=== PATIENT | female | born 1985 | race Caucasian/White ===

== ENCOUNTER 2018-07-29 11:20 | Inpatient (IN) | payer MEDICAID ==
[~2018-07-29] VITALS: Ht 167.6 cm; Wt 127.0 kg
[~2018-07-29 11:20] MED LIST: LEV50T PO; PREN-153 OR
[2018-07-29 14:57] LABS: Basophils # (auto) 0 uL; Basophils % (auto) 0.2 % (0.0-2.0); Eosinophils # (auto) 0 uL; Eosinophils % (auto) 0.2 % (0.0-7.0); Hematocrit 40.1 % (36.0-46.0); Hemoglobin 13.1 g/dL (12.2-16.2); Lymphocytes # (auto) 1.5 uL; Lymphocytes % (auto) 9.5 % (10.0-50.0); Mean Corpuscular Hemoglobin 27.2 pg (28.0-32.0); Mean Corpuscular Hgb Conc. 32.7 g/dL (32.0-36.0); Mean Corpuscular Volume 83.3 fL (80.0-100.0); Monocytes % (auto) 6.2 % (0.0-12.0); Neutrophils % (auto) 83.9 % (37.0-80.0); Platelet Count (auto) 124 10^3/uL (140-450); Red Blood Cells 4.82 10^6/uL (4.0-5.20); Red Cell Distribution Width 16.5 % (11.8-14.3); White Blood Cell 15.5 10^3/uL (4.4-10.8)
[2018-07-29 15:18] LABS: INR 0.86 (0.9-1.15); Partial Thromboplastin Time 26.1 sec (23.64-32.05)
[2018-07-29 15:21] LABS: Albumin 2.4 g/dL (3.4-5.0); Calcium 8.2 mg/dL (8.5-10.1); Potassium 4.5 mmol/L (3.5-5.1)
[2018-07-29 15:26] LABS: BUN/Creatinine Ratio 15.4; Bilirubin, Total 0.4 mg/dL (0.2-1.0); Total Protein 6.4 g/dL (6.4-8.2); Uric Acid 5.5 mg/dL (2.6-6.0)
[2018-07-29] MEDS ORDERED: MAGNESIUM SULFATE 40MG/ML 1,000 ML IV SCH (16:24)
[2018-07-29] MEDS ORDERED: LACT. RINGERS/OXYTOCIN 20UNITS 1,000 ML IV SCH (16:24)
[2018-07-29] MEDS ORDERED: PHISODERM TOP SOLN 240ML BTL TOP PRN (16:30)
[2018-07-29] MEDS ORDERED: NALBUPHINE HCL 10 MG/1ml INJECTION IV PRN (16:30)
[2018-07-29] MEDS ORDERED: LIDOCAINE 2%HCL (LOCAL ANESTH.) INJ 20ML MDV ID PRN (16:30)
[2018-07-29] MEDS ORDERED: DERMOPLAST 60ML BOTTLE TOP PRN (16:30)
[2018-07-29] MEDS ORDERED: MAGNESIUM SULFATE 100 ML IV ONE (16:30)
[2018-07-29] MEDS ORDERED: CARBOPROST TROMETHAMINE 250 MCG/1ML VIAL IM PRN (16:30)
[2018-07-29 16:36] LABS: Urine WBC None Seen /hpf (0 - 5)
[2018-07-29] MEDS: LACTATED RINGER'S 1,000 ML IV SCH (17:00)
[2018-07-29 17:10] LABS: Urine Bacteria FEW /hpf (None Seen); Urine Blood Negative /uL (Negative); Urine Mucus FEW (None Seen); Urine Specific Gravity 1.013 (1.001-1.035)
[2018-07-29] MEDS ORDERED: TETRACAINE 1% INJ 2 ML VIAL IJ ONE (20:05)
[2018-07-29] MEDS ORDERED: fentaNYL CITRATE 100 MCG/2 ML VL ONE (20:07)
[2018-07-29] MEDS ORDERED: MORPHINE SULF(PF) 0.5MG/ML 10ML VIAL ONE (20:07)
[2018-07-29] MEDS ORDERED: MIDAZOLAM HCL 1MG/1ML-2 ML VIAL ONE ×3 (20:07→20:42)
[2018-07-29] MEDS ORDERED: SODIUM CHLORIDE LOCK 20 ML ONE (20:08)
[2018-07-29] MEDS ORDERED: ePHEDrine SULFATE 50 MG/ML AMP ONE (20:08)
[2018-07-29] MEDS ORDERED: EPINEPHrine HCL 1 MG/1 ML AMP ONE (20:08)
[2018-07-29] MEDS ORDERED: OXYTOCIN 10 UNIT/ML 10ML VIAL ONE (20:08)
[2018-07-29] MEDS ORDERED: ONDANSETRON HCL 4 MG/2 ML VIAL ONE (20:08)
[2018-07-29] MEDS ORDERED: ceFAZolin 1GM VL ONE (20:08)
[2018-07-29] MEDS ORDERED: diphenhdrAMINE HCL 50 MG/1 ML VL IV PRN (21:45)
[2018-07-29] MEDS ORDERED: ONDANSETRON HCL 4 MG/2 ML VIAL IV PRN (21:45)
[2018-07-29] MEDS ORDERED: HYDROmorphone HCL 2 MG/ML VL IV PRN (21:45)
[2018-07-29] MEDS ORDERED: MORPHINE SULFATE 4 MG/ML SYR/VIAL IV PRN (21:45)
[2018-07-29] MEDS ORDERED: METOCLOPRAMIDE HCL 5MG/ml INJ 2ml VIAL IV ONE (21:45)
[2018-07-29] MEDS ORDERED: KETOROLAC TROMETH 30 MG/ML 1ML VIAL IV PRN (21:45)
[2018-07-29] MEDS ORDERED: KETOROLAC TROMETH 30 MG/ML 1ML VIAL IV ONE (21:45)
[2018-07-29] MEDS ORDERED: ceFAZolin 1GM/50ML 50 ML IV SCH (21:45)
[2018-07-29] MEDS ORDERED: NALOXONE HCL 0.4 MG/ML VIAL IV PRN (21:45)
[2018-07-29] MEDS: LACT. RINGERS/OXYTOCIN 20UNITS 1,000 ML IV SCH (22:00)
--- NOTE | 2018-07-29 22:25 | NUR ---
Post Op for LDRP: Received patient from PACU via bed to room 4. Patient A/A/Ox4, abdominal binder and bilateral SCD's are in place, IV fluids placed on pump and infusing per order, incisional site dressing clean/dry/intact and Velasquez Catheter to gravity draining clear yellow urine. Incentive Spirometer at bedside and instruction on proper use with return demonstration done by patient.
[2018-07-29 22:36] LABS: Basophils # (auto) 0 uL; Basophils % (auto) 0.2 % (0.0-2.0); Eosinophils # (auto) 0 uL; Eosinophils % (auto) 0.1 % (0.0-7.0); Hemoglobin 13.4 g/dL (12.2-16.2); Lymphocytes # (auto) 1.5 uL; Mean Corpuscular Hemoglobin 27.5 pg (28.0-32.0); Mean Corpuscular Hgb Conc. 32.6 g/dL (32.0-36.0); Mean Corpuscular Volume 84.3 fL (80.0-100.0); Monocytes # (auto) 1.3 uL; Monocytes % (auto) 7.3 % (0.0-12.0); Neutrophils # (auto) 15.4 uL; Neutrophils % (auto) 84.4 % (37.0-80.0); Platelet Count (auto) 80 10^3/uL (140-450); Red Blood Cells 4.86 10^6/uL (4.0-5.20); Red Cell Distribution Width 16.3 % (11.8-14.3); White Blood Cell 18.2 10^3/uL (4.4-10.8)
[2018-07-29 22:54] LABS: Calcium 7.7 mg/dL (8.5-10.1); Potassium 4.4 mmol/L (3.5-5.1)
[2018-07-29 23:01] LABS: Albumin 2.4 g/dL (3.4-5.0); BUN/Creatinine Ratio 11.7; Bilirubin, Total 1.1 mg/dL (0.2-1.0); Total Protein 6.3 g/dL (6.4-8.2)
--- NOTE | 2018-07-29 23:39 | NUR ---
Dr. Dumont calls unit for update on PT. lab results. CBC and CMP results given including Platelet, Hemoglobin, Hematocrit, AST and ALT results. Continue plan of care.
[2018-07-30] VITALS (30 sets, daily range): BP systolic 106–137; BP diastolic 55–84
[2018-07-30] MEDS: ceFAZolin 1GM/50ML 50 ML IV SCH ×3 (02:46→17:35)
[2018-07-30] MEDS: LACTATED RINGER'S 1,000 ML IV SCH ×3 (04:27→09:00)
[2018-07-30] MEDS: WITCH HAZEL-GLYCERIN PAD TOP PRN (05:07)
--- NOTE | 2018-07-30 06:30 | NUR ---
PT REPORT RECEIVED FROM Carli EDWARD RN ON STABLE PATIENT. PT IS ALERT AND ORIENTED X4, PT LYING SUPINE IN BED, PT IS ASYMPTOMATIC. PTS BED IS AND IN LOWEST POSITION, SIDE RAILS UP X2, CALL LIGHT WITHIN REACH. NO S/S OF DISTRESS OR SOB NOTED, BILATERAL LUNG SOUNDS CLEAR, PT DENIES ANY PAIN, ABDOMINAL BINDER IS ON, ABDOMINAL DRESSING REMOVED PER ORDER, FUNDUS FIRM, 1 BELOW UMBILICUS, SMALL RUBRA BLEEDING NOTED, ACTIVE BOWEL SOUNDS, NO FLATUS AT THIS TIME, IV INFUSING INFUSING MAGNESIUM 2GM/50ML/HR, AND PITOCIN 20 UNITS IN 1000ML LR BAG AT 100ML/HR PER DR. RICHARD ORDER. PTS DANIEL CATHETER IS PATENT AND DRAINING DARK ALEXIA URINE TO GRAVITY. PTS SCD'S ON AND COMPRESSING BILATERAL LOWER EXTREMITIES. WILL CONTINUE TO MONITOR.
[2018-07-30] MEDS: LACT. RINGERS/OXYTOCIN 20UNITS 1,000 ML IV SCH ×2 (06:38→20:58)
--- NOTE | 2018-07-30 07:00 | NUR ---
DR. RICHARD CALLED UNIT, STATUS UPDATE GIVEN. DR RICHARD NOTIFIED THAT LAB RESULTS ARE STILL PENDING, TRENDING VITAL SIGNS GIVEN, TRENDING URINE OUTPUTS GIVEN, PT DENIES ANY PAIN, FUNDUS FIRM, 1 BELOW UMBILICUS, SMALL RUBRA BLEEDING NOTED, INFUSING MAGNESIUM 2GM/50ML/HR, AND PITOCIN 20 UNITS IN 1000ML LR BAG AT 100ML/HR PER ORDER. ORDERS RECEIVED FROM DR. RICHARD TO STOP PITOCIN AND RESUME LR AT 75ML/HR, PT CAN GET UP TO CHAIR AT 0900, RESUME MAGNESIUM 2GM AT 50ML/HR AND RE-EVALUATE AT 2100 TONIGHT. READ BACK AND VERIFIED ORDERS. WILL CARRY OUT.
[2018-07-30 07:15] LABS: Eosinophils # (auto) 0 uL; Hematocrit 35.9 % (36.0-46.0); Hemoglobin 11.9 g/dL (12.2-16.2); Lymphocytes # (auto) 1.6 uL; Neutrophils % (auto) 80.5 % (37.0-80.0)
[2018-07-30 07:17] LABS: Basophils # (auto) 0 uL; Basophils % (auto) 0.2 % (0.0-2.0); Eosinophils % (auto) 0.1 % (0.0-7.0); Lymphocytes % (auto) 11.5 % (10.0-50.0); Mean Corpuscular Hemoglobin 27.6 pg (28.0-32.0); Mean Corpuscular Hgb Conc. 33.1 g/dL (32.0-36.0); Mean Corpuscular Volume 83.4 fL (80.0-100.0); Monocytes # (auto) 1.1 uL; Monocytes % (auto) 7.7 % (0.0-12.0); Platelet Count (auto) 62 10^3/uL (140-450); Red Blood Cells 4.31 10^6/uL (4.0-5.20); Red Cell Distribution Width 16.1 % (11.8-14.3); White Blood Cell 13.7 10^3/uL (4.4-10.8)
[2018-07-30 07:30] LABS: Potassium 4.3 mmol/L (3.5-5.1)
[2018-07-30 07:34] LABS: Albumin 2.1 g/dL (3.4-5.0); Calcium 7.3 mg/dL (8.5-10.1)
[2018-07-30 07:37] LABS: Bilirubin, Total 0.7 mg/dL (0.2-1.0); Total Protein 5.7 g/dL (6.4-8.2)
--- NOTE | 2018-07-30 08:02 | NUR ---
DR. RICHARD NOTIFIED OF ALL LAB RESULTS. DR. RICHARD NOTIFIED THAT PT HAS A GENERALIZED PARIETAL HEADACHE. PER PT ITS "A PULSING HEADACHE THAT STARTED ABOUT 5 MINUTES AGO." PT STATES A 3/10 PAIN LEVEL. PT HAS ACTIVE BOWEL SOUNDS, NO FLATUS YET. ORDERS RECEIVED FROM DR. RICHARD FOR CLEAR LIQUID DIET, CBC RE-DRAW AT 10AM TODAY, CBC, CMP RE-DRAW AT 0600 TOMORROW 07/31/18, TYLENOL 650MG PO Q4HRS PRN FOR HEADACHE, AND NORCO 5/325MG PO Q4HRS FOR PAIN. READ BACK AND VERIFIED ORDERS. WILL CARRY OUT.
[2018-07-30] MEDS: ACETAMINOPHEN 325 MG TAB PO PRN ×2 (08:57→20:26)
[2018-07-30] MEDS: HYDROcodone-ACET 5/325MG TAB PO PRN ×3 (10:03→22:30)
--- NOTE | 2018-07-30 12:35 | NUR ---
PT ASSISTED TO CHAIR AT BEDSIDE BY THIS RN. NO DISTRESS NOTED. WILL CONTINUE TO MONITOR.
--- NOTE | 2018-07-30 13:12 | NUR ---
[facility] TE[facility] IN NURSERY FOR TRANSPORT OF , STATUS UPDATE GIVEN.
--- NOTE | 2018-07-30 13:15 | NUR ---
DR. RICHARD NOTIFIED OF PTS MAGNESIUM LEVEL OF 6.2, PT IS ASYMPTOMATIC, NO S/SF MAGNESIUM TOXICITY, TRENDING VITAL SIGNS GIVEN, TRENDING URINE OUTPUT GIVEN, PT SITTING IN CHAIR AT BEDSIDE. ORDERS RECEIVED FROM DR. RICHARD TO STOP PTS IV MAGNESIUM FOR 2 HOURS, REPEAT MAGNESIUM LEVEL 2 HOURS AFTER MAGNESIUM IS STOPPED. READ BACK AND VERIFIED ORDERS. WILL CARRY OUT.
--- NOTE | 2018-07-30 13:20 | NUR ---
PTS IV MAGNESIUM STOPPED AT THIS TIME. WILL CONTINUE TO MONITOR.
--- NOTE | 2018-07-30 14:10 | NUR ---
PT BACK IN BED. PT LYING SEMIFOWLERS IN BED, SCD'S REMAIN ON AND COMPRESSING BILATERAL LOWER EXTREMITIES. PT DENIES ANY PAIN THIS TIME. NO DISTRESS NOTED. BED IN LOCKED AND IN LOWEST POSITION, CALL LIGHT WITHIN REACH. WILL CONTINUE TO MONITOR.
--- NOTE | 2018-07-30 17:10 | NUR ---
Dr Dumont called unit informed her of current Mag. level of 5.1 and BPs. Received order to discontinue Mag. infusion.
--- NOTE | 2018-07-30 18:30 | NUR ---
PT REPORT GIVEN TO Carli EDWARD RN ON STABLE PATIENT, RELINQUISHED CARE. NO DISTRESS NOTED.
[2018-07-30 19:00] LABS: Basophils # (auto) 0 uL; Basophils % (auto) 0.2 % (0.0-2.0); Eosinophils # (auto) 0 uL; Eosinophils % (auto) 0.2 % (0.0-7.0); Hematocrit 40.3 % (36.0-46.0); Hemoglobin 13.1 g/dL (12.2-16.2); Lymphocytes # (auto) 1.3 uL; Lymphocytes % (auto) 8.6 % (10.0-50.0); Mean Corpuscular Hemoglobin 27.1 pg (28.0-32.0); Mean Corpuscular Hgb Conc. 32.4 g/dL (32.0-36.0); Mean Corpuscular Volume 83.6 fL (80.0-100.0); Monocytes # (auto) 0.9 uL; Monocytes % (auto) 5.8 % (0.0-12.0); Neutrophils % (auto) 85.2 % (37.0-80.0); Platelet Count (auto) 71 10^3/uL (140-450); Red Blood Cells 4.82 10^6/uL (4.0-5.20); Red Cell Distribution Width 16.7 % (11.8-14.3); White Blood Cell 15.2 10^3/uL (4.4-10.8)
[2018-07-31] VITALS (7 sets, daily range): BP systolic 116–138; BP diastolic 61–77
[2018-07-31] MEDS: LACT. RINGERS/OXYTOCIN 20UNITS 1,000 ML IV SCH (04:00)
[2018-07-31] MEDS: HYDROcodone-ACET 5/325MG TAB PO PRN (04:09)
[2018-07-31] MEDS ORDERED: SIMETHICONE 80 MG CHEWABLE TABLET PO SCH (06:00)
[2018-07-31] MEDS ORDERED: IBUPROFEN 800 MG TAB PO PRN (06:00)
[2018-07-31 06:31] LABS: Basophils # (auto) 0 uL; Basophils % (auto) 0.2 % (0.0-2.0); Eosinophils # (auto) 0.1 uL; Eosinophils % (auto) 0.5 % (0.0-7.0); Hematocrit 36.1 % (36.0-46.0); Hemoglobin 11.9 g/dL (12.2-16.2); Lymphocytes # (auto) 1.4 uL; Lymphocytes % (auto) 10.1 % (10.0-50.0); Mean Corpuscular Hemoglobin 27.6 pg (28.0-32.0); Mean Corpuscular Hgb Conc. 33.1 g/dL (32.0-36.0); Mean Corpuscular Volume 83.5 fL (80.0-100.0); Monocytes % (auto) 7.2 % (0.0-12.0); Neutrophils # (auto) 11.4 uL; Platelet Count (auto) 71 10^3/uL (140-450); Red Blood Cells 4.32 10^6/uL (4.0-5.20); Red Cell Distribution Width 17.1 % (11.8-14.3); White Blood Cell 13.9 10^3/uL (4.4-10.8)
[2018-07-31 06:44] LABS: Potassium 4.2 mmol/L (3.5-5.1)
[2018-07-31 06:52] LABS: Albumin 2.1 g/dL (3.4-5.0); BUN/Creatinine Ratio 13.1; Bilirubin, Total 0.5 mg/dL (0.2-1.0); Calcium 7.4 mg/dL (8.5-10.1); Total Protein 6.2 g/dL (6.4-8.2)
[2018-07-31 07:06] LABS: RPR Non Reactive (Non Reactive)
[2018-07-31] MEDS ORDERED: BISACODYL 10 MG RECT SUPP PR PRN (10:15)
[2018-07-31] MEDS: SIMETHICONE 80 MG CHEWABLE TABLET PO SCH ×3 (11:36→22:27)
[2018-07-31] MEDS: HYDROcodone-ACET 10/325MG TAB PO PRN ×3 (12:51→22:26)
[2018-07-31] MEDS ORDERED: LEVOTHYROXINE SODIUM 25 MCG TAB PO ONE (14:15)
--- NOTE | 2018-07-31 18:52 | NUR ---
Post physical assessment complete. Incision without drainage, all maine intact, open to air. No S/S of infection noted at this time. patuient displays no S/S of distress.
--- NOTE | 2018-07-31 18:55 | NUR ---
Ambulation encouraged by RN patient refuses at this time, states she is "too tired, trying to rest."
[2018-07-31] MEDS: DOCUSATE SOD 100 MG CAP PO SCH (22:28)
[2018-08-01 03:03] VITALS: BP 128/69
[2018-08-01] MEDS: SIMETHICONE 80 MG CHEWABLE TABLET PO SCH ×4 (05:33→22:14)
[2018-08-01] MEDS: HYDROcodone-ACET 10/325MG TAB PO PRN ×4 (05:34→23:24)
[2018-08-01 06:35] LABS: Basophils # (auto) 0.1 uL; Basophils % (auto) 0.4 % (0.0-2.0); Eosinophils # (auto) 0.2 uL; Eosinophils % (auto) 1.7 % (0.0-7.0); Hematocrit 35.3 % (36.0-46.0); Hemoglobin 11.5 g/dL (12.2-16.2); Lymphocytes # (auto) 2.1 uL; Lymphocytes % (auto) 17.6 % (10.0-50.0); Mean Corpuscular Hemoglobin 27.3 pg (28.0-32.0); Mean Corpuscular Hgb Conc. 32.5 g/dL (32.0-36.0); Mean Corpuscular Volume 84.1 fL (80.0-100.0); Monocytes % (auto) 8.1 % (0.0-12.0); Neutrophils # (auto) 8.7 uL; Neutrophils % (auto) 72.2 % (37.0-80.0); Nucleated Red Blood Cells % 0.1 %; Platelet Count (auto) 96 10^3/uL (140-450); Red Cell Distribution Width 16.9 % (11.8-14.3)
[2018-08-01 07:00] VITALS: BP 127/63
[2018-08-01] MEDS: LEVOTHYROXINE SODIUM 25 MCG TAB PO SCH (07:00)
[2018-08-01 07:09] LABS: Albumin 2.1 g/dL (3.4-5.0)
[2018-08-01 07:13] LABS: BUN/Creatinine Ratio 13.8; Bilirubin, Total 0.3 mg/dL (0.2-1.0); Total Protein 6.1 g/dL (6.4-8.2)
--- NOTE | 2018-08-01 09:24 | NUR ---
ambulating in the hallway.
[2018-08-01] MEDS ORDERED: DOCUSATE CALCIUM 240 MG CAP PO SCH (10:00)
[2018-08-01] MEDS: DOCUSATE SOD 100 MG CAP PO SCH ×2 (10:24→22:14)
[2018-08-01 11:00] VITALS: BP 141/75
--- NOTE | 2018-08-01 13:00 | NUR ---
ambulating in the hallway for the second time.
--- NOTE | 2018-08-01 13:20 | NUR ---
report given to uriah shah rn patient in stable condition.
--- NOTE | 2018-08-01 15:00 | NUR ---
Pt ambulating in hallway with . Steady gait. Tolerated well.
[2018-08-01 15:08] VITALS: BP 139/70
[2018-08-01 18:39] VITALS: BP 141/85
--- NOTE | 2018-08-01 21:00 | NUR ---
Dr. Ramirez notified PT is reporting headache and recent blood pressure is 144/65 P 85. Received order PT may have Tylenol as needed for headache and to continue plan of care.
[2018-08-01 23:00] VITALS: BP 140/72
[2018-08-02 03:19] VITALS: BP 121/74
--- NOTE | 2018-08-02 03:20 | NUR ---
Discharge: Discharge instructions given. Pt encouraged to follow up with [facility] as apt made on 08-06-18 at -0800am. All questions and concerns addressed. Patient verbalized understanding. Medication reconciliation completed. PT declines TDAP. PT has no questions.
[2018-08-02 05:49] LABS: Basophils # (auto) 0.1 uL; Basophils % (auto) 0.5 % (0.0-2.0); Eosinophils # (auto) 0.3 uL; Eosinophils % (auto) 3.2 % (0.0-7.0); Hematocrit 35.5 % (36.0-46.0); Hemoglobin 11.9 g/dL (12.2-16.2); Lymphocytes % (auto) 22.1 % (10.0-50.0); Mean Corpuscular Hgb Conc. 33.4 g/dL (32.0-36.0); Mean Corpuscular Volume 83.9 fL (80.0-100.0); Monocytes # (auto) 0.7 uL; Monocytes % (auto) 7.5 % (0.0-12.0); Neutrophils # (auto) 6.2 uL; Neutrophils % (auto) 66.7 % (37.0-80.0); Platelet Count (auto) 122 10^3/uL (140-450); Red Blood Cells 4.23 10^6/uL (4.0-5.20); Red Cell Distribution Width 16.6 % (11.8-14.3); White Blood Cell 9.3 10^3/uL (4.4-10.8)
[2018-08-02] MEDS: HYDROcodone-ACET 10/325MG TAB PO PRN (05:59)
[2018-08-02] MEDS: SIMETHICONE 80 MG CHEWABLE TABLET PO SCH (05:59)
[2018-08-02 06:02] LABS: Albumin 2.2 g/dL (3.4-5.0); BUN/Creatinine Ratio 15.6; Bilirubin, Total 0.3 mg/dL (0.2-1.0); Calcium 8.3 mg/dL (8.5-10.1); Total Protein 6.2 g/dL (6.4-8.2)
[2018-08-02] MEDS: WITCH HAZEL-GLYCERIN PAD TOP PRN (06:03)
--- NOTE | 2018-08-02 06:45 | NUR ---
Pt resting in bed. Pain 0/10. Abdomin soft, tender with fundal massage. Incision-no redness, no edema, no ecchimosis, no drainage, edges well approximated. [address], open to air. Abdominal binder in place. Encouraged oral hydration, ambulation, elevation of lower extremities, updated on POC, and pain management. Board updated. Verbalized understanding.
[2018-08-02] MEDS: LEVOTHYROXINE SODIUM 25 MCG TAB PO SCH (06:55)
[2018-08-02 06:57] VITALS: BP 137/86
--- NOTE | 2018-08-02 09:30 | NUR ---
Discharge: Discharge instructions given as ordered. Pt encouraged to follow up with [facility] as instructed. All questions and concerns addressed. Patient verbalized understanding. Medication reconciliation completed and copy given to patient. All required/requested vaccines given and copies of vaccinations given to patient. Patient encouraged to prepare to depart unit.
--- NOTE | 2018-08-02 09:55 | NUR ---
Discharge: Patient taken to vehicle via wheelchair with all personal belongings, accompanied by staff and family member. No distress noted at time of departure, no adverse changes in status since initial assessment.
== END 2018-08-02 09:55 | disposition home or self-care (01) | DRG 540 ==
LOC: OBSVTOIN 11:20 → LDRP 11:20
PROVIDERS: ADMIT Obstetrics & Gynecology; ATTEND Obstetrics & Gynecology
PROC: 10D00Z1 Extraction of Products of Conception, Low, Open Approach (ICD-10-PCS; principal; 2018-07-29 20:28)
DX: O14.14 Severe pre-eclampsia complicating childbirth (principal); E03.9 Hypothyroidism, unspecified; O99.284 Endocrine, nutritional and metabolic diseases complicating childbirth; Z37.0 Single live birth; Z3A.38 38 weeks gestation of pregnancy
CPT/HCPCS: 36415; 51702; 59025; 76818; 80053; 81001; 81002; 83735; 84550; 85025; 85610; 85730; 86592; 86850; 86900; 86901; 94762; 96361; 96365; 96366; G0378; J0171; J0690; J1885; J2250; J2405; J2590

== ENCOUNTER 2019-04-13 17:38 | Emergency (ER) | payer MEDICAID ==
[~2019-04-13] VITALS: Ht 165.1 cm; Wt 120.2 kg
[2019-04-13 17:45] VITALS: BP 133/84
[2019-04-13 19:36] LABS: Basophils # (auto) 0.1 uL; Eosinophils # (auto) 0.2 uL; Neutrophils # (auto) 7.8 uL; Nucleated Red Blood Cells % 0.1 %
[2019-04-13 19:38] LABS: Eosinophils % (auto) 1.7 % (0.0-7.0); Hematocrit 45.4 % (36.0-46.0); Hemoglobin 15.3 g/dL (12.2-16.2); Lymphocytes # (auto) 2.8 uL; Mean Corpuscular Hemoglobin 27.6 pg (28.0-32.0); Mean Corpuscular Hgb Conc. 33.7 g/dL (32.0-36.0); Monocytes # (auto) 0.7 uL; Monocytes % (auto) 6.1 % (0.0-12.0); Neutrophils % (auto) 67.2 % (37.0-80.0); Platelet Count (auto) 266 10^3/uL (140-450); Red Blood Cells 5.54 10^6/uL (4.0-5.20); Red Cell Distribution Width 13.6 % (11.8-14.3); White Blood Cell 11.6 10^3/uL (4.4-10.8)
[2019-04-13 19:52] LABS: INR 1.01 (0.9-1.15); Partial Thromboplastin Time 28.6 sec (23.64-32.05)
[2019-04-13 19:54] LABS: Albumin 3.9 g/dL (3.4-5.0); Anion Gap 5 (5-15); Blood Urea Nitrogen 13 mg/dL (7-18); Calcium 9.3 mg/dL (8.5-10.1); Carbon Dioxide 28 mmol/L (21-32); Chloride 105 mmol/L (98-107); Glucose 86 mg/dL (74-106); Potassium 4.2 mmol/L (3.5-5.1); Sodium 138 mmol/L (136-145)
[2019-04-13 19:59] LABS: Alanine Aminotransferase 34 U/L (13-56); Alkaline Phosphatase 125 U/L (45-117); Aspartate Aminotransferase 22 U/L (15-37); BUN/Creatinine Ratio 15.5; Bilirubin, Total 0.2 mg/dL (0.2-1.0); GFR African American 99 mL/min; GFR Non-African American 82 mL/min; Total Protein 8.8 g/dL (6.4-8.2)
== END 2019-04-13 23:35 | disposition home or self-care (01) ==
LOC: ER 17:39
DX: R07.89 Other chest pain (principal); J45.909 Unspecified asthma, uncomplicated; Z88.8 Allergy status to other drugs, medicaments and biological substances; Z90.49 Acquired absence of other specified parts of digestive tract
CPT/HCPCS: 36415; 71046; 80053; 84484; 85025; 85379; 85610; 85730; 93005

== ENCOUNTER 2021-04-12 23:19 | Observation (INO) | payer MEDICAID ==
[~2021-04-12 23:19] MED LIST changes: -PREN-153 OR; +PREN1TAB71 OR
[2021-04-13 00:50] LABS: Basophils # (auto) 0.1 10 ^3/uL (0-0.2); Eosinophils # (auto) 0.1 10 ^3/uL (0-0.8); Lymphocytes # (auto) 2.3 10 ^3/uL (0.4-5.4); Mean Corpuscular Hgb Conc. 32.7 g/dL (32.0-36.0); Nucleated Red Blood Cells % 0.1 %
[2021-04-13 00:52] LABS: Basophils % (auto) 0.4 % (0.0-2.0); Eosinophils % (auto) 0.5 % (0.0-7.0); Hematocrit 39.8 % (36.0-46.0); Lymphocytes % (auto) 16.4 % (10.0-50.0); Mean Corpuscular Hemoglobin 26.7 pg (28.0-32.0); Mean Corpuscular Volume 81.6 fL (80.0-100.0); Monocytes # (auto) 1.1 10 ^3/uL (0-1.3); Monocytes % (auto) 7.5 % (0.0-12.0); Neutrophils # (auto) 10.5 10 ^3/uL (1.6-8.6); Neutrophils % (auto) 75.2 % (37.0-80.0); Red Blood Cells 4.88 10^6/uL (4.0-5.20); Red Cell Distribution Width 16.4 % (11.8-14.3)
[2021-04-13 01:01] LABS: Albumin 2.3 g/dL (3.4-5.0); Calcium 8.9 mg/dL (8.5-10.1); Uric Acid 4.8 mg/dL (2.6-6.0)
[2021-04-13 01:02] LABS: Protein, Urine 19.7 mg/dL (0.0-11.9); Urine Bacteria MOD /hpf (None Seen); Urine Blood Negative /uL (Negative); Urine Specific Gravity 1.018 (1.001-1.035); Urine WBC 3 /hpf (0 - 5)
[2021-04-13 01:03] LABS: Amphetamine Screen, Urine NEGATIVE (NEGATIVE); Barbiturate Scree,Urine NEGATIVE (NEGATIVE); Benzodiazephine Screen, Urine NEGATIVE (NEGATIVE); Cannabinoid Screen, Urine NEGATIVE (NEGATIVE); Cocaine Screen, Urine NEGATIVE (NEGATIVE); Opiate Scree,Urine NEGATIVE (NEGATIVE); Phencyclidine Screen, Urine NEGATIVE (NEGATIVE)
[2021-04-13 01:14] LABS: Bilirubin, Total 0.2 mg/dL (0.2-1.0); Potassium 3.9 mmol/L (3.5-5.1); Total Protein 6.6 g/dL (6.4-8.2)
[2021-04-13 01:25] LABS: INR 0.9 (0.9-1.15); Partial Thromboplastin Time 25.8 sec (23.6-33.0)
== END 2021-04-13 01:55 | disposition home or self-care (01) ==
LOC: LDRP 23:19
PROVIDERS: ADMIT Obstetrics & Gynecology; ATTEND Obstetrics & Gynecology
DX: O13.3 Gestational [pregnancy-induced] hypertension without significant proteinuria, third trimester (principal); Z79.899 Other long term (current) drug therapy; O26.893 Other specified pregnancy related conditions, third trimester; R51.9 Headache, unspecified; Z3A.34 34 weeks gestation of pregnancy
CPT/HCPCS: 36415; 59025; 76818; 80053; 80307; 81001; 81002; 82565; 82570; 84156; 84550; 85025; 85379; 85384; 85610; 85730; 94760; G0378